=== PATIENT | female | born 1940 | race Caucasian/White ===

== ENCOUNTER 2020-09-04 15:41 | Inpatient (IN) | payer MEDICARE, BC ==
[~2020-09-04] VITALS: Wt 57.5 kg
[2020-09-04] MEDS ORDERED: SYNTHROID0.088 MG/T PO (15:56)
[2020-09-04 18:20] VITALS: BP 110/68; PULSE 62; TEMP 97.8
[2020-09-04 19:11] LABS: HEMOGLOBIN 11.5 g/dl (12.5-16.0); MEAN CELL VOLUME 85 fl (80.0-100.0); MEAN CORPUSCULAR HEMOGLOBIN 28 pg (27.0-31.0); MEAN CORPUSCULAR HGB CONC 33 g/dl (33.0-37.0); MEAN PLATELET VOLUME 11.4 fl (7.4-10.4); PLATELET COUNT 188 K/mm3 (130-400); RED BLOOD COUNT 4.15 M/mm3 (4.10-5.30); REDCELL DISTRIBUTION WIDTH-CV 14.9 % (11.5-14.5)
[2020-09-04 19:14] LABS: HEMATOCRIT 35.3 % (37.0-47.0)
[2020-09-04 19:16] LABS: INR 1.1 (0.8-3.0)
[2020-09-04 19:22] LABS: ALANINE AMINOTRANSFERASE 10 U/L (4-34); ALBUMIN 3.5 gm/dL (3.5-5.0); ALKALINE PHOSPHATASE 107 U/L (50-136); ANION GAP 5 mmol/L (7-16); AST,SGOT 18 U/L (15-37); BILIRUBIN,TOTAL 0.6 mg/dL (0.0-1.0); BLOOD UREA NITROGEN 14 mg/dL (7-17); CALCIUM 8.7 mg/dL (8.4-10.2); CARBON DIOXIDE 26 mmol/L (22-30); CHLORIDE 106 mmol/L (98-107); CREATININE, serum 0.62 (0.52-1.25); GLUCOSE 140 mg/dL (74-106); POTASSIUM 3.3 mmol/L (3.4-5.0); SODIUM 138 mmol/L (137-145); TOTAL PROTEIN 6.4 gm/dL (6.4-8.2)
[2020-09-04 19:34] LABS: BAND 6 % (0-10); LYMPHOCYTE 1 % (20.0-51.0); NEUTROPHILS 87 % (42.0-75.2); TROPONIN-I < 0.012 ng/mL (0.000-0.035)
--- NOTE | 2020-09-04 19:35 | NUR ---
Stephanie to resume cares. Report from the Er. Patient to room 346. Chest xray completed. Cassandra with ortho rounded. Thermostatic Controls Supervisor completed inital. Labs drawn. Ekg to be completed.
[2020-09-04 19:36] LABS: OVALOCYTES 1+
[2020-09-04 19:38] LABS: PLATELET ESTIMATE NORMAL (NORMAL)
--- NOTE | 2020-09-04 20:01 | NUR ---
Pt currently lying in bed. Pt stated that she is ok at the moment as far as pain. Pt lungs sounds were clear, heart sounds were normal S1 and S2 sounds. Pt has fluids infuising at this time. She has her call light within reach and her bed is in lowest position .
--- NOTE | 2020-09-04 20:32 | NUR ---
Pt stated that her pain was at a 7 out of 10. Pt was given pain medication at this time. Pt also asked about a rojo because she's really worried about going to the restroom. Pt was informed that we will try rojo placement once we given the pain medication time to work. Pt has her call light within reach and her bed is in lowest position.
[2020-09-04 20:50] VITALS: BP 131/52; PULSE 60; TEMP 98.3
[2020-09-04 23:42] LABS: COLLECTION METHOD CLEAN CATCH
[2020-09-04 23:58] LABS: MUCOUS Present /lpf; PH 6 (5-8); SQUAMOUS EPITHELIAL None Seen /hpf; URINE APPEARANCE Hazy; URINE BACTERIA None Seen /hpf; URINE BILIRUBIN Negative (NEGATIVE); URINE BLOOD 1+ (NEGATIVE); URINE COLOR Yellow; URINE GLUCOSE Negative (NEGATIVE); URINE KETONE Trace (NEGATIVE); URINE LEUKOCYTE ESTERASE Negative (NEGATIVE); URINE NITRATE Negative (NEGATIVE); URINE PROTEIN(semi-quant) Negative (NEGATIVE); URINE UROBILINOGEN Negative (NEGATIVE)
[2020-09-05] VITALS (11 sets, daily range): BP systolic 121–167; BP diastolic 54–88; PULSE 53–69; TEMP 97.4–98.3
--- NOTE | 2020-09-05 06:00 | NUR ---
Pt did request something for pain this morning and she was given pain medication at that time. Pt rojo is still draining clear yellow urine. Pt daughter in law did call this morning for an update, she was also transferred to her mother's room and after she wanted to make sure that we let the doctor know to call them after pt has went to surgery. Pt has her call light within reach and her bed is in lowest position.
[2020-09-05 07:19] LABS: HEMATOCRIT 31.1 % (37.0-47.0)
--- NOTE | 2020-09-05 08:00 | NUR ---
PATIENT IS A&O. VSS. RATES PAIN IN RLE AT 4/10 AT REST. PATIENT SCHEDULED TO GO TO THE OR THIS AM FOR RIGHT HIP FX. CONSENT ON CHART. NPO. DNR STATUS. HEAD TO TOE ASSESSMENT COMPLETE. NO OTHER NEEDS. CALL LIGHT IN REACH.
[2020-09-05 08:33] LABS: CALCIUM 8.2 mg/dL (8.4-10.2); CREATININE, serum 0.58 (0.52-1.25); MAGNESIUM 1.9 mg/dL (1.6-2.3); POTASSIUM 3.6 mmol/L (3.4-5.0)
[2020-09-05] MEDS ORDERED: SYNTHROID0.088 MG/T PO (08:44)
--- NOTE | 2020-09-05 09:45 | NUR ---
PATIENT GOING DOWN TO OR VIA BED. CONSENT ON CHART. IV FLUIDS TO GRAVITY.
--- NOTE | 2020-09-05 09:56 | NUR ---
Initial visit; Patient thanked Refrigerating Engineer Head for prayer this morning and for keeping her in Refrigerating Engineer Head's prayers.
--- NOTE | 2020-09-05 11:40 | NUR ---
The patient is in surgery for her right hip fracture. SW contacted the patient's son, Yuriy (ph#[phone]), to discuss discharge plan. The patient lives alone in [place]. Yuriy reports that him and his live 4 1/2 miles away from her. He reports that the patient was independent with ADLs prior to the fall and that she was not using any DME. The patient's primary care provider is ALISE Cline and she receives her medications at [facility] in [place]. The patient does not have a DPOA-HC in EMR, but Yuriy reports that he thinks the patient has one done. He states that he will check with the patient, when she is back from surgery. The patient's is and she has three children: Yuriy, Dionicio ([place]), and Kamran ([place]). SW discussed post-acute rehab with Yuriy. Yuriy is agreeable to rehab and chose 1) [facility] 2) [facility]. OLIVIA contacted and faxed a referral to Teressa at [facility]. OLIVIA consulted IPR Director, Estela. Awaiting screens.
--- NOTE | 2020-09-05 12:15 | NUR ---
PATIENT BACK IN ROOM 346 POST OP. PATIENT IS VERY DROWSY BUT AROUSES WITH VERBAL STIMULI. VSS. DENIES PAIN. PATIENT ABL ETO WIGGLES TOES BLE. RIGHT HIP DRESSINGS ARE CD&I WITH GAUZE & TEGADERM. SCD'S TO BLE. POSITIVE PEDAL PULSES TO BLE. HEAD TO TOE ASSESSMENT WNL. NO C/O N/V. IV FLUIDS INFUSING INTO RIGHT WRIST IV. LIQUIDS AT BEDSIDE. PATIENT SLEEPING WITH LIGHTS TURNED DOWN AND CALL LIGHT IN REACH.
--- NOTE | 2020-09-05 13:34 | NUR ---
Teressa, at [facility], reports that they can accept the patient. They will just need a PCR COVID test and the results within 72 hours of d/c.
--- NOTE | 2020-09-05 17:00 | NUR ---
PATIENT REFUSING TO TAKE ORAL POTASSIUM OR ANY LIQUIDS AT THIS TIME DUE TO NAUSEA. NURSING EDUCATED PATIENT ABOUT THE SIDE EFFECT OF NAUSEA WITH PAIN MEDS. PATIENT REPORTS ZOFRAN HELPED BUT THE TYLENOL DID NOT. PATIENT WAS GIVEN PRN IV MORPHINE PER REQUEST. PATIENT NOW A LITTLE CONFUSED AND THINKS SHE HEARS KIDS NEXT DOOR HAVING A GREEN PARTY. PATIENT RE-ORIENTED.
--- NOTE | 2020-09-05 21:11 | NUR ---
Pt in bed, complains of pain to left hip 03/04. Is alert and oriented x4. Has IVF infusing to right wrist without redness or swelling. Takes HS meds including Sabin 7.5mg 1 tab po and dose of Morphine 2mg IVP. Did given Zofran IV as well for nausea with pain meds. Sims to BSD with yellow urine. Has drsg's x3 to left hip. Call light within reach.
[2020-09-06 00:16] VITALS: BP 119/50; PULSE 60; TEMP 97.7
[2020-09-06 04:09] VITALS: BP 134/49; PULSE 64; TEMP 97.4
[2020-09-06 07:50] LABS: MEAN CELL VOLUME 89 fl (80.0-100.0); MEAN CORPUSCULAR HGB CONC 32 g/dl (33.0-37.0); MEAN PLATELET VOLUME 12.4 fl (7.4-10.4); PLATELET COUNT 155 K/mm3 (130-400); RED BLOOD COUNT 3.05 M/mm3 (4.10-5.30); REDCELL DISTRIBUTION WIDTH-CV 15.6 % (11.5-14.5)
[2020-09-06 07:52] LABS: HEMATOCRIT 27.2 % (37.0-47.0); HEMOGLOBIN 8.6 g/dl (12.5-16.0); MEAN CORPUSCULAR HEMOGLOBIN 28 pg (27.0-31.0)
[2020-09-06 07:54] LABS: INR 1.1 (0.8-3.0); PROTHROMBIN TIME 12.2 SECONDS (9.7-12.8)
[2020-09-06 08:04] LABS: CALCIUM 8.1 mg/dL (8.4-10.2); CREATININE, serum 0.63 (0.52-1.25); POTASSIUM 3.2 mmol/L (3.4-5.0)
[2020-09-06 08:36] VITALS: BP 148/63; PULSE 80; TEMP 97.7
--- NOTE | 2020-09-06 09:25 | NUR ---
MORNING MEDICATIONS AND PRN IV ZOFRAN GIVEN FOR NAUSEA AT THIS TIME.
--- NOTE | 2020-09-06 11:00 | NUR ---
MORNING SHIFT ASSESSMENT COMPLETED AT THIS TIME. PATIENT IS A&OX4. VSS. EDEMA TO RIGHT HIP NOTED. RIGHT HIP INCISIONS X3 DRESSED WITH GAUZE & TEGADERM AND ARE CD&I. ICE PACK IN PLACE. POSITIVE PEDAL PULSES EQUAL BILATERALLY. CAP REFILL <3 SECONDS. CMS INTACT. LOWER EXTREMITY WEAKNESS NOTED. INDWELLING LAGUNA CATHETER DRAINING CLEAR, YELLOW URINE TO DEPENDENT DRAINAGE. PATIENT REPORTING NAUSEA WITHOUT ANY VOMITING. PATIENT PASSING FLATUS. PATIENT REPORTS THAT THE PAIN IN HER HIP IS A 6/10 PAIN ON A 0-10 SCALE, THAT RADIATES TO THE GROIN. CALL LIGHT IN REACH. PATIENT DENIES ANY NEEDS AT THIS TIME.
--- NOTE | 2020-09-06 11:10 | NUR ---
INDWELLING LAGUNA CATHETER DISCONTINUED PER ORDERS. 10 MLS OF STERILE WATER ASPIRATED FROM BALLOON. TIP INTACT. PATIENT TOLERATED WELL. GALINDO CARE PROVIDED. COVID SWAB COLLECTED AT THIS TIME.
[2020-09-06 11:22] VITALS: BP 126/83; PULSE 65; TEMP 98.4
--- NOTE | 2020-09-06 12:00 | NUR ---
THIS NURSE SPOKE WITH OTONIEL GARCIA REGARDING THE PATIENTS NORCO. PATIENT REPORTS THAT SHE IS VERY SENSITIVE TO PAIN MEDICAITONS. JOSE TO MAKE ADJUSTMENTS AFTER REVIEW.
[2020-09-06 16:15] VITALS: BP 166/70; PULSE 72; TEMP 98.5
--- NOTE | 2020-09-06 16:46 | NUR ---
PATIENT REPORTING THE PAIN IN HER RIGHT HIP A 8/10 ON A 0-10 SCALE. PATIENT GIVEN PRN ZOFRAN WITH 1 TABLET OF NORCO. WILL CONTINUE TO MONITOR.
--- NOTE | 2020-09-06 17:15 | NUR ---
Electric Power Line Examiner confirmed with OTONIEL Doll that patient's COVID swab was ordered.
--- NOTE | 2020-09-06 17:57 | NUR ---
PATIENT VOIDING SUFFICIENTLY POST-LAGUNA CATHETER REMOVAL. WILL REPORT OFF TO ONCOMING NURSE.
[2020-09-06 20:19] VITALS: BP 152/61; PULSE 87; TEMP 98.6
--- NOTE | 2020-09-06 22:00 | NUR ---
Does not want to get out of bed to void, using bedpan. IVF infusing to right wrist. Takes HS meds, denies need for pain meds at this time.
[2020-09-07 08:00] VITALS: BP 144/55; PULSE 70; TEMP 98.4
[2020-09-07 11:01] LABS: INR 1.1 (0.8-3.0); PROTHROMBIN TIME 12.2 SECONDS (9.7-12.8)
[2020-09-07 12:00] VITALS: BP 125/58; PULSE 68; TEMP 98.1
[2020-09-07 13:07] LABS: HEMATOCRIT 25.7 % (37.0-47.0); HEMOGLOBIN 8.2 g/dl (12.5-16.0); MEAN CELL VOLUME 89 fl (80.0-100.0); MEAN CORPUSCULAR HEMOGLOBIN 28 pg (27.0-31.0); MEAN CORPUSCULAR HGB CONC 32 g/dl (33.0-37.0); MEAN PLATELET VOLUME 12.2 fl (7.4-10.4); PLATELET COUNT 158 K/mm3 (130-400); RED BLOOD COUNT 2.88 M/mm3 (4.10-5.30); REDCELL DISTRIBUTION WIDTH-CV 15.3 % (11.5-14.5)
[2020-09-07 13:25] LABS: CALCIUM 8.7 mg/dL (8.4-10.2); CREATININE, serum 0.62 (0.52-1.25); MAGNESIUM 1.8 mg/dL (1.6-2.3); POTASSIUM 3.7 mmol/L (3.4-5.0)
--- NOTE | 2020-09-07 14:42 | NUR ---
The patient's COVID results came back negative. OLIVIA notified and faxed updates to Teressa at [facility]. SW contacted and updated the patient's son, Yuriy. He is agreeable with the patient going to [facility] upon discharge.
[2020-09-07 16:00] VITALS: BP 132/48; PULSE 83; TEMP 98.2
--- NOTE | 2020-09-07 20:00 | NUR ---
Report received, assumed care for machinist 2nd shift. Assessment complete. A&Ox3-drowsy. States she is only short of breath with activity but appears short of air at rest. O2@2L/NC. Blood pressure eleveated-PRN dose of hydralazine given-will recheck. Noted to have bilat upper lobe insp/exp wheezing-bases diminished. Was on steady on feet up to bathroom so made a high fall risk. Bed alarm on and encouraged to call before getting up to bathroom. Verbalizes understanding. Call light in reach. Will monitor.
--- NOTE | 2020-09-07 20:00 | NUR ---
Report received, assumed care for hourly shift manager. Assessment complete. A&Ox3-drowsy. VS stable. Denies nausea/shortness of breath. Rating pain 2/10 to right hip-described as intermittent cramp/throbbing. Denies need for medication. Fresh ice pack applied. Dressing to right hip x3-gauze/tegaderm-CDI. Plan of care discussed for this shift to include HS meds/pain meds/calling for questions or concerns. Verbalizes understanding. Call light in reach. Will monitor.
--- NOTE | 2020-09-07 20:09 | NUR ---
PATIENT HASD UNEVENTFUL SHIFT. PATIENT WORKED WITH PT AND OT. PATIENT REPORTED PAIN THROUGHOUT THE SHIFT BUT REFUSED TO TAKE ANY PAIN MEDICATIONS. RIGHT HIP INCISION SITES X3 REMAINED CD&I WITH GAUZE & TEGADERM DRESSINGS. POSITIVE PEDAL PULSES EQUAL BILATERALLY. CAP REFILL <3 SECONDS. CMS INTACT. REPORTED OFF TO NIGHT NURSE.
[2020-09-07 20:24] VITALS: BP 119/57; PULSE 78; TEMP 98.2
[2020-09-07 23:38] VITALS: BP 136/54; PULSE 70; TEMP 98.8
--- NOTE | 2020-09-08 00:30 | NUR ---
Resting eyes closed. No s/s of pain noted. Call light in reach. Will monitor.
[2020-09-08 04:31] VITALS: BP 142/61; PULSE 64; TEMP 98.2
--- NOTE | 2020-09-08 05:35 | NUR ---
Rested well this shift. Received tylenol x1 for mild hip pain. SCDs/TEDs bilat. Fresh ice pack applied. Denies needs. Call light in reach/bed alarm on. Will monitor.
--- NOTE | 2020-09-08 06:50 | NUR ---
Patient lying in bed with eyes open watching TV. Alert and oriented x4. Minimal pain at this time that does increase with movement. Dressings x3 to right hip all CDI. Patient denies needs at this time.
[2020-09-08 07:34] LABS: PROTHROMBIN TIME 11.7 SECONDS (9.7-12.8)
[2020-09-08 08:17] VITALS: BP 114/56; PULSE 78; TEMP 97.3
[2020-09-08] MEDS ORDERED: ASPI325T6 PO (08:42)
[2020-09-08] MEDS ORDERED: TYLENOL 500MG500 MG PO (08:43)
[2020-09-08] MEDS ORDERED: OSCAL 500 TAB500 MG PO (08:43)
[2020-09-08] MEDS ORDERED: NORCO 325 MG-51 TAB PO (08:43)
[2020-09-08] MEDS ORDERED: DUO-KAPS1 CAP PO (08:44)
[2020-09-08] MEDS ORDERED: MIRALAX PA17 GM/Dose PO (08:44)
[2020-09-08] MEDS ORDERED: VITAMIN C500 MG PO (08:44)
[2020-09-08] MEDS ORDERED: FERROUS SU325 MG/TAB PO (08:49)
[2020-09-08 08:51] LABS: CALCIUM 8.6 mg/dL (8.4-10.2); CREATININE, serum 0.77 (0.52-1.25)
[2020-09-08 09:38] VITALS: BP 114/56; PULSE 78; TEMP 97.3
--- NOTE | 2020-09-08 09:43 | NUR ---
Initial visit; Marcia thanked for looking in on her and offering God's blessings.
--- NOTE | 2020-09-08 10:31 | NUR ---
Report called to Kianna at [facility] at [facility].
--- NOTE | 2020-09-08 10:54 | NUR ---
Sitting up in recliner watching TV. Minimal pain at this time but would like pain pill to prepare her for the movement she will be doing as she is transferred to [facility]. Pain medication administered as prescribed. Denies additional needs at this time.
--- NOTE | 2020-09-08 11:02 | NUR ---
The patient is ready to d/c today. OLIVIA notified and faxed updates to Teressa at [facility]. Teressa reports that they are able to accept the patient. The patient is to discharge today, 09/08, to [facility] for a skilled stay. Transportation was scheduled around 1145, via [facility]. OLIVIA informed the patient and her RN of the time. They were both agreeable to the time. OLIVIA attempted to contact and update the patient's son (Yuriy) and [id number] (Gwendolyn). SW left Mary message. Gwendolyn's voicemail was full. SW presented and read the IM form outloud to the patient. The patient verbalized understanding and gave OLIVIA approval to sign the form on her behalf. No additional needs at this time.
--- NOTE | 2020-09-08 11:09 | NUR ---
OTONIEL Ruvalcaba, would like patient dressings to right hip changed. Removed three dressings, all with none or very scant discharge that was old. All edges well approximated, no redness/swelling/discharge, steri strips all intact. Apply one folded up 4x4 to each site and reinforced with tegaderm. Patient tolerates without difficulty.
--- NOTE | 2020-09-08 12:03 | NUR ---
Zaire here to pick patient up. Patient assisted from recliner to wheel chair and taken out to vehicle via wheel chair with all belongings.
== END 2020-09-08 12:03 | DRG 481 ==
LOC: COL.ER 15:41 → SURG 17:00
PROVIDERS: Internal Medicine; Orthopaedic Surgery; Physician Assistant; ADMIT Hospitalist
PROC: 0QS604Z Reposition Right Upper Femur with Internal Fixation Device, Open Approach (ICD-10-PCS; principal; 2020-09-05 10:00)
DX: S72.101A Unspecified trochanteric fracture of right femur, initial encounter for closed fracture (principal); D62 Acute posthemorrhagic anemia; M54.30 Sciatica, unspecified side; G89.29 Other chronic pain; M54.9 Dorsalgia, unspecified; E03.9 Hypothyroidism, unspecified; Z20.828 Contact with and (suspected) exposure to other viral communicable diseases; W01.0XXA Fall on same level from slipping, tripping and stumbling without subsequent striking against object, initial encounter; R11.0 Nausea; R79.89 Other specified abnormal findings of blood chemistry; Y93.89 Activity, other specified; Y92.009 Unspecified place in unspecified non-institutional (private) residence as the place of occurrence of the external cause
CPT/HCPCS: OP; 99231-AI; 99232-AI; 99239; A9284; C1713; C1769; J0690; J2270; J2405; J2704; J7030; J7121

== ENCOUNTER → 2020-09-10 | Outpatient (REF) ==
[~2020-09-10] MED LIST: ASPI325T6 PO; DUO-KAPS1 CAP PO; FERROUS SU325 MG/TAB PO; MIRALAX PA17 GM/Dose PO; NORCO 325 MG-51 TAB PO; OSCAL 500 TAB500 MG PO; SYNTHROID0.088 MG/T PO; TYLENOL 500MG500 MG PO; VITAMIN C500 MG PO
[2020-09-10 11:17] LABS: CALCIUM 8.9 mg/dL (8.4-10.2); CREATININE, serum 0.69 (0.52-1.25); POTASSIUM 3.7 mmol/L (3.4-5.0)
== END ==
LOC: ZCOL.LAB 10:35
PROVIDERS: Internal Medicine
DX: Z01.89 Encounter for other specified special examinations (principal)

== ENCOUNTER 2021-08-27 09:40 | Emergency (ER) | payer MEDICARE, BC ==
[~2021-08-27] VITALS: Ht 167.6 cm; Wt 54.5 kg
[2021-08-27 09:43] VITALS: TEMP 98.1
[2021-08-27] MEDS ORDERED: NORCO 325 MG-51 TAB PO (10:10)
[2021-08-27 11:08] VITALS: BP 171/78; PULSE 84
== END 2021-08-27 11:08 | disposition home or self-care (01) ==
LOC: COL.ER 09:40
DX: S82.64XA Nondisplaced fracture of lateral malleolus of right fibula, initial encounter for closed fracture (principal); W19.XXXA Unspecified fall, initial encounter; Y92.009 Unspecified place in unspecified non-institutional (private) residence as the place of occurrence of the external cause

== ENCOUNTER 2023-12-11 11:15 | Inpatient (IN) | payer MEDICARE, BC ==
[~2023-12-11] VITALS: Ht 167.6 cm; Wt 48.1 kg
[~2023-12-11 11:15] MED LIST changes: +COUMADIN 22.5 MG/TAB PO; +COUMADIN 5MG5 MG/TAB PO; +IMDUR 60MG60 MG/TAB PO; +KAPSPARGO SPRI100 MG PO; +KLOR-CON SPRIN10 MEQ PO; +ZESTRIL 20MG TA20 MG PO
[2023-12-16 08:30] VITALS: BP 109/75; PULSE 117; TEMP 96.9
[2023-12-16 09:39] LABS: BASO # 0.1 K/mm3 (0.0-0.2); BASO % 1.1 % (0.0-2.0); EOS # 0.1 K/mm3 (0.0-0.7); EOS % 1.3 % (0.0-4.0); GRAN # 6.5 K/mm3 (1.4-6.5); GRAN % 82.3 % (42.2-75.2); HEMATOCRIT 45.1 % (37.0-47.0); HEMOGLOBIN 14.6 g/dl (12.5-16.0); LYMPH # 0.6 K/mm3 (1.2-3.4); MEAN CELL VOLUME 93 fl (80.0-100.0); MEAN CORPUSCULAR HEMOGLOBIN 30 pg (27-31); MEAN CORPUSCULAR HGB CONC 32 g/dl (33.0-37.0); MONO # 0.6 K/mm3 (0.1-0.6); PLATELET COUNT 175 K/mm3 (130-400); RED BLOOD COUNT 4.87 M/mm3 (4.10-5.30); REDCELL DISTRIBUTION WIDTH-CV 15.3 % (11.5-14.5)
[2023-12-16] MEDS ORDERED: LASIX 20MG TABL20 MG PO (09:46)
[2023-12-16] MEDS ORDERED: ELIQUIS 2.5 PO (09:47)
[2023-12-16] MEDS ORDERED: PRINIVIL20 MG PO (09:51)
[2023-12-16] MEDS ORDERED: CARDIZEM120 MG PO (09:51)
[2023-12-16] MEDS ORDERED: CARDIZEM CD 12120 MG PO (09:52)
[2023-12-16] MEDS ORDERED: K-DUR 10 MEQ T10 MEQ PO (09:53)
[2023-12-16] MEDS ORDERED: TOPROL XL100 MG PO (09:53)
[2023-12-16 11:01] VITALS: BP 107/71; PULSE 107; TEMP 97.3
[2023-12-16 11:19] LABS: INR 1.4 (0.8-3.0); PROTHROMBIN TIME 15.2 SECONDS (9.7-12.8)
[2023-12-16] MEDS ORDERED: Acetaminophen 325 MG TAB PO PRN (12:00)
[2023-12-16] MEDS ORDERED: Bisacodyl 5 MG TAB PO PRN (12:00)
[2023-12-16] MEDS ORDERED: Ondansetron 4 MG/2 ML VIAL IV PRN (12:00)
[2023-12-16] MEDS ORDERED: Magnes Hydrox (MOM) 80 MG/ML 30 ML CUP PO PRN (12:00)
[2023-12-16] MEDS ORDERED: Acetaminophen 500 MG TAB PO PRN (12:15)
[2023-12-16 13:04] LABS: ALBUMIN 3.6 g/dL (3.4-4.8); BILIRUBIN,TOTAL 0.9 mg/dL (0.2-1.2); CALCIUM 9.3 mg/dL (8.4-10.2); CREATININE, serum 0.83 mg/dL (0.57-1.11); MAGNESIUM 2.1 mg/dL (1.6-2.6); POTASSIUM 3.8 mEq/L (3.5-4.5); TOTAL PROTEIN 6.7 g/dl (6.2-8.1)
[2023-12-16 13:59] VITALS: BP_SYST 107
[2023-12-16] MEDS ORDERED: Amiodarone 200 MG TAB PO SCH (14:00)
--- NOTE | 2023-12-16 14:29 | NUR ---
Patient admitted to room 319 at approximately 0830 for amiodarone initiation. Tele placed. Patient difficult stick- attempted x2 to start IV but unsuccessful. Lab only able to get part of their collection. [facility]IVS notified and able to get a #20g to the LAC and collect rest of lab specimens. Denies pain or needs.
[2023-12-16 15:03] VITALS: BP 117/76; PULSE 104; TEMP 97.7
[2023-12-16 17:13] VITALS: BP_SYST 117
--- NOTE | 2023-12-16 19:03 | NUR ---
Pt independent in room throughout day. Very pleasant and cooperative. Denies pain or needs at this time. Bedside report given to COY Cummins.
[2023-12-16] MEDS ORDERED: Apixaban 2.5 MG TAB PO SCH (21:00)
[2023-12-16] MEDS ORDERED: Melatonin 3 MG TAB PO PRN (21:00)
[2023-12-16 22:08] VITALS: BP_SYST 117
--- NOTE | 2023-12-16 22:13 | NUR ---
Shift assessment complete. Patient denies any pain at this time. Also denies any shortness of breath, palpitations, chest pain, nausea. She is stable on room air, alert and oriented, and is independant in her room. Call light is within reach. Bed is locked and in low position.
[2023-12-17] VITALS (10 sets, daily range): BP systolic 102–123; BP diastolic 63–82; PULSE 70–100; TEMP 97.5–98.6
[2023-12-17 06:55] LABS: CREATININE, serum 0.79 mg/dL (0.57-1.11); POTASSIUM 3.5 mEq/L (3.5-4.5)
[2023-12-17] MEDS ORDERED: Isosorbide Mononitrate CR (24-HR) 60 MG TAB PO SCH (09:00)
[2023-12-17] MEDS ORDERED: Lisinopril 20 MG TAB PO SCH (09:00)
[2023-12-17] MEDS ORDERED: Furosemide 40 MG TAB PO SCH (09:00)
[2023-12-17] MEDS ORDERED: *Potassium Replacement Protocol MC SCH (09:30)
[2023-12-17] MEDS ORDERED: Potassium Bicarbonate/Citrate 20 MEQ Effervescent TAB PO SCH (09:30)
--- NOTE | 2023-12-17 10:55 | NUR ---
Patient alert and oriented x4. Shift assessment complete this morning. Denies pain or discomfort at this time. Heart rhythm irregular and rate is tachycardic. Patient resting in bed, tolerating food and fluids well. Call light within reach. Currently replacing potassium per orders.
--- NOTE | 2023-12-17 14:26 | NUR ---
pulley worker met with pt to discuss discharge planning. Pt reports to live alone in [place]. She sees Suzette Márquez for PCP needs and obtains medications from [facility] with no difficulties. She reports to be independent with ADLS and has a FWW at home she uses when dizzy for DME. She reports her contact as her daughter, Gwendolyn [phone]. She states her son plans to bring in her DPOA-HC. Discharge plan: home
--- NOTE | 2023-12-17 22:47 | NUR ---
patient lying in bed, alert and oriented x4. denies chest pain and reports some shortness of breath only with exertion. IV in LAC is patent, site is clean dry and intact. no remarkable skin findings noted, small general scattered bruising. pt has no further needs, questions, or concerns at this time. ambulating with steady gait. call light within reach. will continue to monitor.
[2023-12-18] VITALS (10 sets, daily range): BP systolic 90–127; BP diastolic 50–83; PULSE 77–90; TEMP 97.3–98.6
[2023-12-18 06:58] LABS: INR 1.4 (0.8-3.0); PROTHROMBIN TIME 14.8 SECONDS (9.7-12.8)
[2023-12-18 07:07] LABS: CALCIUM 9.1 mg/dL (8.4-10.2); CREATININE, serum 0.8 mg/dL (0.57-1.11); POTASSIUM 4.2 mEq/L (3.5-4.5)
--- NOTE | 2023-12-18 07:45 | NUR ---
Patient sitting up in bed watching TV. A&Ox4. VSS. IV CDI. Denies pain and discomfort. Call light within reach
--- NOTE | 2023-12-18 15:46 | NUR ---
Municipal Maintenance Worker spoke with RN who advised patient is independent in the room, no need for PT/OT eval.
--- NOTE | 2023-12-18 21:40 | NUR ---
patient lying in bed, alert and oriented x4. denies chest pain and shortness of breath. IV in LAC is patent, site has dry slight drainage, no new drainage is dry and intact. no remarkable skin findings, small scattered bruising on extremities noted. pt has no further needs, questions or concerns at this time. ambulating with steady gait. call light within reach. will continue to monitor.
[2023-12-19] VITALS (13 sets, daily range): BP systolic 96–119; BP diastolic 64–81; PULSE 72–83; TEMP 97.4–98.2
[2023-12-19 07:16] LABS: INR 1.5 (0.8-3.0); PROTHROMBIN TIME 15.8 SECONDS (9.7-12.8)
[2023-12-19 07:21] LABS: CALCIUM 9.1 mg/dL (8.4-10.2); CREATININE, serum 0.88 mg/dL (0.57-1.11); POTASSIUM 4.1 mEq/L (3.5-4.5)
--- NOTE | 2023-12-19 14:11 | NUR ---
Patient alert and oriented x4. Denies pain or discomfort. Tolerating food and fluids well. Voices no concerns. Call light within reach, all needs met at this time.
--- NOTE | 2023-12-19 22:28 | NUR ---
patient lying in bed,a lert and oriented x4. denies chest pain and reports shortness of breath occasionally with exertion only. IV in LAC is patent, site dry with some old drainage and intact. general small bruiising on extremities noted. pt has no further needs, questions or concerns at this time. cambulating with steady gait, call light within reach. will coontinue to monitor.
[2023-12-20] VITALS (7 sets, daily range): BP systolic 93–122; BP diastolic 50–81; PULSE 45–65; TEMP 97.5–97.9
[2023-12-20 06:09] LABS: INR 1.4 (0.8-3.0); PROTHROMBIN TIME 14.9 SECONDS (9.7-12.8)
[2023-12-20 06:28] LABS: CALCIUM 9.3 mg/dL (8.4-10.2); CREATININE, serum 1.08 mg/dL (0.57-1.11)
--- NOTE | 2023-12-20 07:30 | NUR ---
Patient laying in bed watching TV in the dark. A&Ox4. VSS. IV CDI. Denies pain and discomfort. Call light within reach
[2023-12-20] MEDS ORDERED: PROPOFOL IV SCH (11:41)
--- NOTE | 2023-12-20 11:42 | NUR ---
30MG Propofol given IV push by Dr. Yuen for procedure.
[2023-12-20] MEDS ORDERED: Hydrocortisone 1% Cream 30 GM TUBE TP PRN (11:45)
[2023-12-20] MEDS ORDERED: NS 1,000 ML IV SCH ×2 (12:00)
--- NOTE | 2023-12-20 12:06 | NUR ---
Patient to room 319 from CV. A&Ox4. VSS. IV CDI, fluids by gravity. Denies pain and discomfort. Post op VS monitored. Nurse reoriented the patient to location,room and call light. No further needs expressed. Call light within reach
--- NOTE | 2023-12-20 12:09 | NUR ---
Bedside report completed with Milady RN. Call light within reach. First set of vitals reviewed. Milady RN denies questions/concerns at this time.
[2023-12-20] MEDS ORDERED: TOPROL XL 50MG50 MG PO (12:37)
[2023-12-20] MEDS ORDERED: CORDARONE200 MG/TAB PO (12:37)
--- NOTE | 2023-12-20 13:25 | NUR ---
Discharge paperwork reviewed with the patient. Patient verbalized an understanding to follow doctors orders. IV removed, tip intact. Gauze and coban applied. Waiting on son for ride home. Call light within reach
--- NOTE | 2023-12-20 15:20 | NUR ---
PAtient taken by wheelchair to awaiting vehicle with family. Nurse reviewed discharge paperwork with family and over medications to take when the patient gets home. Personal belongings with the patient and family. No further needs expressed.
== END 2023-12-20 15:15 | disposition home or self-care (01) | DRG 310 ==
LOC: MEDICAL 12-16 08:21
PROVIDERS: ADMIT Internal Medicine Cardiovascular Disease
PROC: 5A2204Z Restoration of Cardiac Rhythm, Single (ICD-10-PCS; principal; 2023-12-20)
DX: I48.91 Unspecified atrial fibrillation (principal); I08.3 Combined rheumatic disorders of mitral, aortic and tricuspid valves; Z86.711 Personal history of pulmonary embolism; Z79.01 Long term (current) use of anticoagulants; Z23 Encounter for immunization
CPT/HCPCS: J2704